=== PATIENT | male | born 1950 | race Native Hawaiian/Other Pacific Islander ===

== ENCOUNTER 2017-10-27 14:43 | Observation (INO) | payer MEDICARE, BC ==
--- NOTE | 2017-10-27 15:34 | C.PDOC ---
History Of Present Illness 66 y/o male presents to the ER complaining of mid sternal chest pain which began 2 days ago. Patient reports that he started feeling the chest pain after he took his medication and was going to bed. Patient reports that the pain radiates to his stomach. Patient states that he had a similar episode 5 days ago which was resolved. He reports that the previous episode was intermittent but the current episode is persistent. Patient states that he went to see Dr. Donahue in Pain Management and Dr. Donahue told him to come to the ER. Time Seen by Provider: 10/27/17 15:32 Chief Complaint (Nursing): Chest Pain History Per: Patient History/Exam Limitations: no limitations Onset/Duration Of Symptoms: Days Current Symptoms Are (Timing): Still Present Severity: Moderate Past Medical History Reviewed: Historical Data, Nursing Documentation, Vital Signs Vital Signs: Last Vital Signs Temp 97.8 F 10/27/17 18:43 Pulse 90 10/27/17 18:43 Resp 20 10/27/17 18:43 BP 150/100 H 10/27/17 18:43 Pulse Ox 97 10/27/17 17:32 - Medical History PMH: Diabetes, HTN, Hypercholesterolemia Surgical History: No Surg Hx Family History: States: No Known Family Hx - Social History Hx Tobacco Use: Yes Hx Alcohol Use: Yes Hx Substance Use: No - Immunization History Hx Tetanus Toxoid Vaccination: No Hx Influenza Vaccination: No Hx Pneumococcal Vaccination: No Review Of Systems Except As Marked, All Systems Reviewed And Found Negative. Constitutional: Negative for: Fever, Chills Cardiovascular: Positive for: Chest Pain (mid sternal chest pain) Respiratory: Negative for: Shortness of Breath Physical Exam - Physical Exam Appears: Well, Non-toxic, No Acute Distress Skin: Normal Color, Warm, Dry Head: Atraumatic, Normacephalic Eye(s): bilateral: Normal Inspection, EOMI Nose: Normal ED Course And Treatment - Laboratory Results Result Diagrams: 10/27/17 15:49 10/27/17 15:49 ECG: Interpreted By Me, Viewed By Me ECG Rhythm: Sinus Rhythm Rate From EC O2 Sat by Pulse Oximetry: 97 (RA) Pulse Ox Interpretation: Normal Disposition - Disposition Disposition: HOSPITALIZED Condition: GOOD - 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 - Scribe Statement The provider has reviewed the documentation as recorded by the Jun Peña All medical record entries made by the Jun were at my direction and personally dictated by me. I have reviewed the chart and agree that the record accurately reflects my personal performance of the history, physical exam, medical decision making, and the department course for this patient. I have also personally directed, reviewed, and agree with the discharge instructions and disposition.
[2017-10-27 15:53] LABS: BASO # 0.1 K/uL (0.0-0.2); BASO % 1.2 % (0.0-2.0); EOS # 0.2 K/uL (0.0-0.7); EOS % 2.5 % (0.0-4.0); HEMATOCRIT 38.6 % (35.0-51.0); LYMPH # 1.2 K/uL (1.0-4.3); LYMPH % 16.5 % (20.0-40.0); MEAN CORPUSCULAR HEMOGLOBIN 31.7 pg (27.0-31.0); MEAN CORPUSCULAR HGB CONC 33.9 g/dL (33.0-37.0); MEAN PLATELET VOLUME 7.4 fL (7.2-11.7); MONO # 0.6 K/uL (0.0-0.8); MONO % 7.9 % (0.0-10.0); NRBC % 0.1 % (0.0-2.0); RED CELL DISTRIBUTION WIDTH 14.7 % (11.5-14.5); WHITE BLOOD COUNT 7.5 K/uL (4.8-10.8)
[2017-10-27 15:56] LABS: MEAN CELL VOLUME 93.6 fL (80.0-94.0)
[2017-10-27 16:02] LABS: INR 0.9
[2017-10-27 16:09] LABS: RBC URINE 1 /hpf (0-3); URINE BILIRUBIN NEGATIVE (NEGATIVE); URINE BLOOD NEGATIVE (NEGATIVE); URINE COLOR Yellow (YELLOW); URINE GLUCOSE (UA) 1+ mg/dL (Normal); URINE KETONE TRACE mg/dL (NEGATIVE); URINE LEUKOCYTE ESTERASE NEG Leu/uL (Negative); URINE PROTEIN 1+ mg/dL (NEGATIVE); URINE UROBILINOGEN NORMAL mg/dL (0.2-1.0); WBC URINE 1 /hpf (0-5)
[2017-10-27 16:12] LABS: ALB/GLOB RATIO 1.3 (1.0-2.1); ALKALINE PHOSPHATASE 90 U/L (38-126); ALT/SGPT 34 U/L (21-72); AST/SGOT 28 U/L (17-59); BILIRUBIN,TOTAL 0.5 mg/dL (0.2-1.3); BLOOD UREA NITROGEN 13 mg/dL (9-20); CALCIUM 8.7 mg/dl (8.6-10.4); CARBON DIOXIDE 26 mmol/L (22-30); CHLORIDE 99 mmol/L (98-107); GFR AFRICAN-AMERICAN > 60; GLUCOSE,RANDOM 116 mg/dL (75-110); SODIUM 133 mmol/L (132-148); TOTAL PROTEIN 7.2 g/dL (6.3-8.3)
--- NOTE | 2017-10-27 16:45 | RAD ---
HISTORY: SOB COMPARISON: Chest x-ray performed 09/15/13 TECHNIQUE: Chest, one view. FINDINGS: Examination limited by habitus. LUNGS: No focal consolidation. Please note that chest x-ray has limited sensitivity for the detection of pulmonary masses. PLEURA: No significant pleural effusion identified. No definite pneumothorax . CARDIOVASCULAR: Heart size appears top normal. Ectatic aorta. Atherosclerotic calcifications of the aorta. OSSEOUS STRUCTURES: Degenerative changes. VISUALIZED UPPER ABDOMEN: Unremarkable. OTHER FINDINGS: None. IMPRESSION: No focal consolidation, significant pleural effusion, or definite pneumothorax identified.
[2017-10-27] MEDS ORDERED: Oxycodone/Acetaminophen 5/325 mg Tab PO PRN (20:26)
--- NOTE | 2017-10-27 20:28 | CP.PCM.HP ---
History of Present Illness - History of Present Illness History of Present Illness: Patient with PMH NIDDM Hypertension Cholesterol Back Injury with Discc Disease /Neuropathy Chronic pain came to ER due to persistent chestpain for 2 days. Patient noted an new episode of stabbing pain like and palpitations on anterior chest , disappeared with no medications , patient went to his usual daily PT for his chronic back pain - and again- he had another episode of stabbing pain , he was advised to go to ER -in ER- patient reports palpitations during chest pain, denies SOB, nausea vomiting SOB fever no URI no GI complaints Patient was admitted for further evaluation and management PMH as above NKDA smoker non ETOH no surgery Present on Admission - Present on Admission Any Indicators Present on Admission: No History of DVT/PE: No History of Uncontrolled Diabetes: No Urinary Catheter: No Decubitus Ulcer Present: No Review of Systems - Constitutional Constitutional: absent: Chills, Fever, Lethargy, Night Sweats, Weakness - EENT Eyes: absent: Other Visual Disturbances Ears: absent: Decreased Hearing, Disequilibrium Nose/Mouth/Throat: absent: Nasal Congestion, Nasal Discharge, Sinus Pain - Cardiovascular Cardiovascular: Chest Pain, Chest Pain at Rest, Rapid Heart Rate. absent: Dyspnea, Dyspnea on Exertion, Orthopnea, Slow Heart Rate, Syncope - Respiratory Respiratory: absent: Cough, Dyspnea, Dyspnea on Exertion, Wheezing, Pain on Inspiration - Gastrointestinal Gastrointestinal: absent: Abdominal Pain, Diarrhea, Vomiting - Genitourinary Genitourinary: absent: Difficulty Urinating - Musculoskeletal Musculoskeletal: Other (chronic back pain). absent: Abnormal Gait, Deformity, Joint Swelling - Integumentary Integumentary: absent: Bleeding Lesions, Rash, Skin Ulcer, Sores, Jaundice - Neurological Neurological: absent: Behavioral Changes, Convulsions - Psychiatric Psychiatric: absent: Auditory Hallucinations, Confusion, Depression - Endocrine Endocrine: absent: Fatigue, Polydipsia, Polyphagia, Polyuria - Hematologic/Lymphatic Hematologic: absent: Easy Bleeding, Easy Bruising Past Patient History - Past Medical History & Family History Past Medical History?: Yes - Past Social History Smoking Status: Light Smoker < 10 Cigarettes Daily - CARDIAC Hx Cardiac Disorders: Yes Hx Hypercholesterolemia: Yes Hx Hypertension: Yes - PULMONARY Hx Respiratory Disorders: No - NEUROLOGICAL Hx Neurological Disorder: Yes Hx Dizziness: Yes - HEENT Hx HEENT Problems: No - RENAL Hx Chronic Kidney Disease: No - ENDOCRINE/METABOLIC Hx Endocrine Disorders: Yes Hx Diabetes Mellitus Type 2: Yes - HEMATOLOGICAL/ONCOLOGICAL Hx Blood Disorders: No - INTEGUMENTARY Hx Dermatological Problems: No - MUSCULOSKELETAL/RHEUMATOLOGICAL Hx Falls: Yes - GASTROINTESTINAL Hx Gastrointestinal Disorders: Yes Hx Constipation: Yes - GENITOURINARY/GYNECOLOGICAL Hx Genitourinary Disorders: Yes - PSYCHIATRIC Hx Substance Use: No - SURGICAL HISTORY Hx Surgeries: No - ANESTHESIA Hx Anesthesia: No Hx Anesthesia Reactions: No Meds Allergies/Adverse Reactions: Allergies Allergy/AdvReac Type Severity Reaction Status Date / Time No Known Allergies Allergy Verified 10/27/17 14:50 Physical Exam - Constitutional Appears: Well, Non-toxic, No Acute Distress - Head Exam Head Exam: ATRAUMATIC, NORMOCEPHALIC - Eye Exam Eye Exam: absent: Nystagmus - ENT Exam ENT Exam: Mucous Membranes Moist - Neck Exam Neck exam: Negative for: Tenderness - Respiratory Exam Respiratory Exam: Clear to Auscultation Bilateral, NORMAL BREATHING PATTERN - Cardiovascular Exam Cardiovascular Exam: REGULAR RHYTHM - GI/Abdominal Exam GI & Abdominal Exam: Normal Bowel Sounds, Soft. absent: Tenderness - Extremities Exam Extremities exam: Positive for: normal inspection. Negative for: pedal edema - Neurological Exam Neurological exam: Alert, Normal Gait, Oriented x3 Results - Vital Signs Recent Vital Signs: Last Vital Signs Temp 97.8 F 10/27/17 18:43 Pulse 90 10/27/17 19:29 Resp 20 10/27/17 18:43 BP 150/100 H 10/27/17 18:43 Pulse Ox 97 10/27/17 19:04 - Labs Result Diagrams: 10/27/17 15:49 10/27/17 15:49 Labs: Laboratory Results - last 24 hr 10/27/17 10/27/17 10/27/17 15:49 15:49 15:49 WBC 7.5 RBC 4.12 L Hgb 13.1 Hct 38.6 MCV 93.6 D MCH 31.7 H MCHC 33.9 RDW 14.7 H Plt Count 246 MPV 7.4 Neut % (Auto) 71.9 Lymph % (Auto) 16.5 L [place] % (Auto) 7.9 Eos % (Auto) 2.5 Baso % (Auto) 1.2 Neut # 5.4 Lymph # 1.2 Garza # 0.6 Eos # 0.2 Baso # 0.1 PT 10.1 INR 0.9 APTT 35 H Sodium 133 Potassium 4.0 Chloride 99 Carbon Dioxide 26 Anion Gap 12 BUN 13 Creatinine 0.9 Est GFR ( Amer) > 60 Est GFR (Non-Af Amer) > 60 Random Glucose 116 H Calcium 8.7 Total Bilirubin 0.5 AST 28 ALT 34 Alkaline Phosphatase 90 Total Creatine Kinase 102 CK-MB (Mass) 0.82 Troponin I < 0.0120 Total Protein 7.2 Albumin 4.1 Globulin 3.1 Albumin/Globulin Ratio 1.3 Lipase 77 Urine Color Urine Clarity Urine pH Ur Specific [place] Urine Protein Urine Glucose (UA) Urine Ketones Urine Blood Urine Nitrate Urine Bilirubin Urine Urobilinogen Ur Leukocyte Esterase Urine WBC (Auto) Urine RBC (Auto) 10/27/17 15:55 WBC RBC Hgb Hct MCV MCH MCHC RDW Plt Count MPV Neut % (Auto) Lymph % (Auto) Gar[place] % (Auto) Eos % (Auto) Baso % (Auto) Neut # Lymph # [place] # Eos # Baso # PT INR APTT Sodium Potassium Chloride Carbon Dioxide Anion Gap BUN Creatinine Est GFR ( Amer) Est GFR (Non-Af Amer) Random Glucose Calcium Total Bilirubin AST ALT Alkaline Phosphatase Total Creatine Kinase CK-MB (Mass) Troponin I Total Protein Albumin Globulin Albumin/Globulin Ratio Lipase Urine Color Yellow Urine Clarity Clear Urine pH 6.0 Ur Specific [place] 1.018 Urine Protein 1+ H Urine Glucose (UA) 1+ H Urine Ketones Trace Urine Blood Negative Urine Nitrate Negative Urine Bilirubin Negative Urine Urobilinogen Normal Ur Leukocyte Esterase Neg Urine WBC (Auto) 1 Urine RBC (Auto) 1 Assessment & Plan - Assessment and Plan (Free Text) Plan: Patient with NIDDM2 Hypertension Cholesterol, smoker admitted due to new onset anterior chest pain- with risk factors- patient admitted for further cardiac evaluation LIZ,2 d ECHo- cardio consult DVT prophylaxis, GI prophylaxis NIDDM- continue current meds heart health 1800 ADA diet , accucheck Hypertension- continue medications adjust accordingly continue cholesterol medications Chronic pain syndrome from back injury - PT Rehab pain cpntrol stable- further evaluation
[2017-10-27] MEDS: Enoxaparin 30 mg Syringe SC SCH (21:42)
[2017-10-28] MEDS ORDERED: (Novolog) Insulin Aspart, Recombinant 100 u/ml 10 ml vial SC SCH (07:30)
--- NOTE | 2017-10-28 08:20 | CP.PCM.PN ---
Subjective - Date & Time of Evaluation Date of Evaluation: 10/28/17 Time of Evaluation: 15:00 - Subjective Subjective: Noted BP on the high side , medication reviewed and reconciled patient denies chest pain no other complaints patient went for nuclear test- with negative result echo unremarkable LIZ negative patient wishes to go home discussed Objective - Vital Signs/Intake and Output Vital Signs (last 24 hours): Temp Pulse Resp BP Pulse Ox 98 F 76 20 162/89 H 97 10/28/17 04:30 10/28/17 04:30 10/28/17 04:30 10/28/17 04:30 10/27/17 23:10 Intake and Output: 10/28/17 10/28/17 06:59 18:59 Intake Total 210 Balance 210 - Medications Medications: Current Medications Enoxaparin Sodium (Lovenox) 30 mg SC Q12 [facility] Last Admin: 10/27/17 21:42 Dose: 30 mg Gabapentin (Neurontin) 100 mg PO TID [facility] Insulin Aspart (Novolog) 1 unit SC BIDAC [facility] PRN Reason: Protocol Losartan Potassium (Cozaar) 100 mg PO DAILY [facility] Metformin HCl (Glucophage) 1,000 mg PO BIDCC [facility] Last Admin: 10/27/17 21:41 Dose: 1,000 mg Oxycodone/Acetaminophen (Percocet 5/325 Mg Tab) 1 tab PO Q6H PRN PRN Reason: Pain, moderate (4-7) Stop: 10/30/17 20:27 Last Admin: 10/27/17 21:48 Dose: 1 tab Pantoprazole Sodium (Protonix Ec Tab) 40 mg PO DAILY [facility] Rosuvastatin Calcium (Crestor) 10 mg PO HS [facility] Last Admin: 10/27/17 21:42 Dose: 10 mg - Labs Labs: 10/27/17 15:49 10/27/17 15:49 PT 10.1 SECONDS (9.7-12.2) 10/27/17 15:49 INR 0.9 10/27/17 15:49 APTT 35 SECONDS (21-34) H 10/27/17 15:49 - Constitutional Appears: Non-toxic, No Acute Distress - Head Exam Head Exam: ATRAUMATIC, NORMAL INSPECTION - Eye Exam Eye Exam: Normal appearance - ENT Exam ENT Exam: Mucous Membranes Moist - Respiratory Exam Respiratory Exam: Clear to Ausculation Bilateral, NORMAL BREATHING PATTERN - Cardiovascular Exam Cardiovascular Exam: REGULAR RHYTHM - Extremities Exam Extremities Exam: absent: Pedal Edema, Tenderness - Neurological Exam Neurological Exam: Alert, Awake, Normal Gait, Oriented x3 - Psychiatric Exam Psychiatric exam: Normal Affect, Normal Mood Assessment and Plan - Assessment and Plan (Free Text) Assessment: Patient with multiple riskfators came with chest pain- resolved, cardiac wor up negative- patient can go home NIDDM- continue same medications Hypertension- can resume home meds Chronic back pain- has regular follow up with PT rehab patient can go home- discussed to follow up in o=ne week
[2017-10-28] MEDS ORDERED: Aminophylline 25 mg/ml Inj ONE (08:27)
--- NOTE | 2017-10-28 08:46 | CP.PCM.CON ---
History of Present Illness - History of Present Illness History of Present Illness: 66M admitted with chest pain radiating to left arm Not related to exertion Denies dyspnea Review of Systems - Constitutional Constitutional: absent: Chills, Fever, Lethargy, Night Sweats, Weakness - EENT Eyes: absent: Other Visual Disturbances Ears: absent: Decreased Hearing, Disequilibrium Nose/Mouth/Throat: absent: Nasal Congestion, Nasal Discharge, Sinus Pain - Cardiovascular Cardiovascular: Chest Pain, Chest Pain at Rest, Rapid Heart Rate. absent: Dyspnea, Dyspnea on Exertion, Orthopnea, Slow Heart Rate, Syncope - Respiratory Respiratory: absent: Cough, Dyspnea, Dyspnea on Exertion, Wheezing, Pain on Inspiration - Gastrointestinal Gastrointestinal: absent: Abdominal Pain, Diarrhea, Vomiting - Genitourinary Genitourinary: absent: Difficulty Urinating - Musculoskeletal Musculoskeletal: Other (chronic back pain). absent: Abnormal Gait, Deformity, Joint Swelling - Integumentary Integumentary: absent: Bleeding Lesions, Rash, Skin Ulcer, Sores, Jaundice - Neurological Neurological: absent: Behavioral Changes, Convulsions - Psychiatric Psychiatric: absent: Auditory Hallucinations, Confusion, Depression - Endocrine Endocrine: absent: Fatigue, Polydipsia, Polyphagia, Polyuria - Hematologic/Lymphatic Hematologic: absent: Easy Bleeding, Easy Bruising Physical Exam - Constitutional Appears: Well, Non-toxic, No Acute Distress - Head Exam Head Exam: ATRAUMATIC, NORMOCEPHALIC - Eye Exam Eye Exam: absent: Nystagmus - ENT Exam ENT Exam: Mucous Membranes Moist - Neck Exam Neck exam: Negative for: Tenderness - Respiratory Exam Respiratory Exam: Clear to Auscultation Bilateral, NORMAL BREATHING PATTERN - Cardiovascular Exam Cardiovascular Exam: REGULAR RHYTHM - GI/Abdominal Exam GI & Abdominal Exam: Normal Bowel Sounds, Soft. absent: Tenderness - Extremities Exam Extremities exam: Positive for: normal inspection. Negative for: pedal edema - Neurological Exam Neurological exam: Alert, Normal Gait, Oriented x3 Past Patient History - Past Medical History & Family History Past Medical History?: Yes - Past Social History Smoking Status: Light Smoker < 10 Cigarettes Daily - CARDIAC Hx Cardiac Disorders: Yes Hx Hypercholesterolemia: Yes Hx Hypertension: Yes - PULMONARY Hx Respiratory Disorders: No - NEUROLOGICAL Hx Neurological Disorder: Yes Hx Dizziness: Yes - HEENT Hx HEENT Problems: No - RENAL Hx Chronic Kidney Disease: No - ENDOCRINE/METABOLIC Hx Endocrine Disorders: Yes Hx Diabetes Mellitus Type 2: Yes - HEMATOLOGICAL/ONCOLOGICAL Hx Blood Disorders: No - INTEGUMENTARY Hx Dermatological Problems: No - MUSCULOSKELETAL/RHEUMATOLOGICAL Hx Falls: Yes - GASTROINTESTINAL Hx Gastrointestinal Disorders: Yes Hx Constipation: Yes - GENITOURINARY/GYNECOLOGICAL Hx Genitourinary Disorders: Yes - PSYCHIATRIC Hx Substance Use: No - SURGICAL HISTORY Hx Surgeries: No - ANESTHESIA Hx Anesthesia: No Hx Anesthesia Reactions: No Meds Allergies/Adverse Reactions: Allergies Allergy/AdvReac Type Severity Reaction Status Date / Time No Known Allergies Allergy Verified 10/27/17 14:50 - Medications Medications: Current Medications Amlodipine Besylate (Norvasc) 5 mg PO DAILY [facility] Docusate Sodium (Colace) 100 mg PO TID [facility] Enoxaparin Sodium (Lovenox) 30 mg SC Q12 [facility] Last Admin: 10/27/17 21:42 Dose: 30 mg Gabapentin (Neurontin) 100 mg PO TID [facility] Insulin Aspart (Novolog) 1 unit SC BIDAC [facility] PRN Reason: Protocol Losartan Potassium (Cozaar) 100 mg PO DAILY [facility] Metformin HCl (Glucophage) 1,000 mg PO BIDCC [facility] Last Admin: 10/27/17 21:41 Dose: 1,000 mg Oxycodone/Acetaminophen (Percocet 5/325 Mg Tab) 1 tab PO Q6H PRN PRN Reason: Pain, moderate (4-7) Stop: 10/30/17 20:27 Last Admin: 10/27/17 21:48 Dose: 1 tab Pantoprazole Sodium (Protonix Ec Tab) 40 mg PO DAILY [facility] Rosuvastatin Calcium (Crestor) 10 mg PO HS [facility] Last Admin: 10/27/17 21:42 Dose: 10 mg Results - Vital Signs Recent Vital Signs: Last Vital Signs Temp 98 F 10/28/17 04:30 Pulse 76 10/28/17 04:30 Resp 20 10/28/17 04:30 BP 162/89 H 10/28/17 04:30 Pulse Ox 97 10/27/17 23:10 - Labs Result Diagrams: 10/27/17 15:49 10/27/17 15:49 Labs: Laboratory Results - last 24 hr 10/27/17 10/27/17 10/27/17 15:49 15:49 15:49 WBC 7.5 RBC 4.12 L Hgb 13.1 Hct 38.6 MCV 93.6 D MCH 31.7 H MCHC 33.9 RDW 14.7 H Plt Count 246 MPV 7.4 Neut % (Auto) 71.9 Lymph % (Auto) 16.5 L [place] % (Auto) 7.9 Eos % (Auto) 2.5 Baso % (Auto) 1.2 Neut # 5.4 Lymph # 1.2 [place] # 0.6 Eos # 0.2 Baso # 0.1 PT 10.1 INR 0.9 APTT 35 H Sodium 133 Potassium 4.0 Chloride 99 Carbon Dioxide 26 Anion Gap 12 BUN 13 Creatinine 0.9 Est GFR ( Amer) > 60 Est GFR (Non-Af Amer) > 60 POC Glucose (mg/dL) Random Glucose 116 H Calcium 8.7 Total Bilirubin 0.5 AST 28 ALT 34 Alkaline Phosphatase 90 Total Creatine Kinase 102 CK-MB (Mass) 0.82 Troponin I < 0.0120 Total Protein 7.2 Albumin 4.1 Globulin 3.1 Albumin/Globulin Ratio 1.3 Lipase 77 Urine Color Urine Clarity Urine pH Ur Specific [place] Urine Protein Urine Glucose (UA) Urine Ketones Urine Blood Urine Nitrate Urine Bilirubin Urine Urobilinogen Ur Leukocyte Esterase Urine WBC (Auto) Urine RBC (Auto) 10/27/17 10/27/17 10/27/17 15:55 21:06 22:04 WBC RBC Hgb Hct MCV MCH MCHC RDW Plt Count MPV Neut % (Auto) Lymph % (Auto) [place] % (Auto) Eos % (Auto) Baso % (Auto) Neut # Lymph # [place] # Eos # Baso # PT INR APTT Sodium Potassium Chloride Carbon Dioxide Anion Gap BUN Creatinine Est GFR ( Amer) Est GFR (Non-Af Amer) POC Glucose (mg/dL) 136 H Random Glucose Calcium Total Bilirubin AST ALT Alkaline Phosphatase Total Creatine Kinase 94 CK-MB (Mass) 0.63 Troponin I < 0.0120 Total Protein Albumin Globulin Albumin/Globulin Ratio Lipase Urine Color Yellow Urine Clarity Clear Urine pH 6.0 Ur Specific [place] 1.018 Urine Protein 1+ H Urine Glucose (UA) 1+ H Urine Ketones Trace Urine Blood Negative Urine Nitrate Negative Urine Bilirubin Negative Urine Urobilinogen Normal Ur Leukocyte Esterase Neg Urine WBC (Auto) 1 Urine RBC (Auto) 1 10/28/17 10/28/17 04:32 06:13 WBC RBC Hgb Hct MCV MCH MCHC RDW Plt Count MPV Neut % (Auto) Lymph % (Auto) [place] % (Auto) Eos % (Auto) Baso % (Auto) Neut # Lymph # [place] # Eos # Baso # PT INR APTT Sodium Potassium Chloride Carbon Dioxide Anion Gap BUN Creatinine Est GFR ( Amer) Est GFR (Non-Af Amer) POC Glucose (mg/dL) 96 Random Glucose Calcium Total Bilirubin AST ALT Alkaline Phosphatase Total Creatine Kinase 97 CK-MB (Mass) 0.65 Troponin I < 0.0120 Total Protein Albumin Globulin Albumin/Globulin Ratio Lipase Urine Color Urine Clarity Urine pH Ur Specific [place] Urine Protein Urine Glucose (UA) Urine Ketones Urine Blood Urine Nitrate Urine Bilirubin Urine Urobilinogen Ur Leukocyte Esterase Urine WBC (Auto) Urine RBC (Auto) Assessment & Plan - Assessment and Plan (Free Text) Assessment: 66 M HTN DM 2 Hyperlipidemia and Chest pain Due to multiple risk factors will perform stress test in am
[2017-10-28] MEDS ORDERED: Pantoprazole 40 mg EC Tab PO SCH (10:00)
[2017-10-28] MEDS: Enoxaparin 30 mg Syringe SC SCH (10:23)
--- NOTE | 2017-10-28 14:00 | CARD ---
APPROVED REPORT EXAM: Two-dimensional and M-mode echocardiogram with Doppler and color Doppler. Other Information Quality : GoodRhythm : INDICATION Chest Pain Palpitations RISK FACTORS Hypertension Diabetes 2D DIMENSIONS IVSd1.0 (0.7-1.1cm)LVDd5.0 (3.9-5.9cm) PWd1.1 (0.7-1.1cm)LVDs3.0 (2.5-4.0cm) FS (%) 40.3 %LVEF (%)70.8 (>50%) M-Mode DIMENSIONS Left Atrium (MM)2.99 (2.5-4.0cm)Aortic Root3.72 (2.2-3.7cm) Aortic Cusp Exc.2.33 (1.5-2.0cm) Mitral Valve MV E Spociaun04.6cm/sMV A Drhzngap06.8cm/sE/A ratio0.6 TDI E/Lateral E'0.0E/Medial E'0.0 Tricuspid Valve TR Peak [id number]/sRAP [id number] Peak Gr.33mmHg [id number] LEFT VENTRICLE The left ventricle is normal size. There is normal left ventricular wall thickness. The left ventricular systolic function is normal. There is normal LV segmental wall motion. Transmitral Doppler flow pattern is Grade I-abnormal relaxation pattern. RIGHT VENTRICLE The right ventricle is normal size. The right ventricular systolic function is normal. ATRIA The left atrium size is normal. The right atrium size is normal. AORTIC VALVE The aortic valve is normal in structure. No aortic regurgitation is present. MITRAL VALVE The mitral valve is normal in structure. There is no mitral valve regurgitation noted. TRICUSPID VALVE The tricuspid valve is normal in structure. There is mild tricuspid regurgitation. Right ventricular systolic pressure is estimated at - 38 mmHg. There is mild pulmonary hypertension. PULMONIC VALVE The pulmonic valve is not well visualized. GREAT VESSELS The aortic root is normal in size. The IVC is normal in size and collapses >50% with inspiration. PERICARDIAL EFFUSION There is no pericardial effusion. <Conclusion> The left ventricular systolic function is normal. There is normal LV segmental wall motion. Transmitral Doppler flow pattern is Grade I-abnormal relaxation pattern. The right ventricular systolic function is normal. There is mild tricuspid regurgitation. Right ventricular systolic pressure is estimated at - 38 mmHg suggestive of mild pulmonary hypertension. There is no pericardial effusion.
--- NOTE | 2017-10-28 14:30 | CARD ---
APPROVED REPORT Protocol: PHARMACOLOGICAL STRESS Test Type: LEXISCAN Test Indications: CHEST PAIN Medications: LIST SCAN Medical History: CHEST PAIN Target HR: 152 bpm Resting ECG: normal Resting Heart Rate: 85 bpm Resting Blood Pressure: 160/80mmHg submaximum (85%): 129 bpm TEST SUMMARY [id number]/80.0. INFUSIONDOSE 100:[id number]/80.1. [id number]/78.1. PROCEDURE Pharmacologic stress testing was performed using 0.4mg per 5ml of regadenoson given intravenously over 7-10 seconds. POST EXERCISE Reason for Termination: Protocol Completed Target HR: No Max HR: 82 bpm 65% of Maximum Predicted HR: 152 bpm Exercise duration: 00:30 min:sec, 0 Stage Exercise capacity: 1.0METs Max Blood Pressure: 180/80mmHg Blood Pressure response to exercise: normal resting BP - appropriate response Heart Rate response to exercise: appropriate Chest Pain: No, none Angina index: 0 Arrhythmia: No, none ST Change: No, none Deviation: 0 mm INTERPRETATION Stress EKG Conclusion: Nuclear report to follow EXAM: Myocardial Perfusion REST/STRESS Imaging Protocol The imaging protocol used to acquire images was Rest Tc-99m/stress Tc-99m 1 day Rest Spect myocardial perfusion imaging was performed in supine position 45 minutes following the injection of 12.6 mCi of Tc-99 Myoview. Gated Stress Spect was performed 45 minutes after intravenous 32.5 mCi Tc-99 Myoview injection. The images were gated to evaluate regional wall motion and calculate ventricular ejection fraction.Images were reconstructed using backfilter projection method in short horizontal and verticle long axis. Spect slices were generated. RESTING DATA EDV96.83omCO9.50L/min ESV31.00mlMyocardial Kshy646.00g Av. Heart Rate84.00bpm EF68.00% STRESS DATA EDV94.21ewFY2.10L/min ESV34.00mlMyocardial Qdsd592.00g EF64.00% Regional WT score at stress:1.00 Regional WM score at stress:0.00 Summed WT score at stress:6.00 Av. Heart Rate85.00bpmSummed WM score at stress:4.00 LV Perf. Quant 17 Seg. SSS4.00 17 Seg. SRS3.00 17 Seg. SDS1.00 Stress Defect Extent (% LAD)0.00Rest Defect Extent (% LAD)0.00Rev. Defect Extent (% LAD)0.00 Stress Defect Extent (% LCX)30.00Rest Defect Extent (% LCX)25.00Rev. Defect Extent (% LCX)0.00 Stress Defect Extent (% RCA)0.00Rest Defect Extent (% RCA)0.00Rev. Defect Extent (% RCA)0.00 Stress Defect Extent (% MARÍA)8.00Rest Defect Extent (% MARÍA)5.70Rev. Defect Extent (% MARÍA)0.20 Other Information Quality:Good IMPRESSION Normal Myocardial Perfusion exercise stress study Left Ventricle LV Function:Left ventricle systolic function is normal. The Ejection Fraction is >55%. Metabolism/Perfusion There are no perfusion/metabolism defects. Conclusion 1. Normal Lexiscan nuclear stress test. Normal EF
--- NOTE | 2017-10-28 14:56 | CP.PCM.PN ---
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 Patient seen today denies any chest pain, sob, palpitations s/p stress test - negative Objective - Vital Signs/Intake and Output Vital Signs (last 24 hours): Temp Pulse Resp BP Pulse Ox 98 F 88 20 162/89 H 97 10/28/17 04:30 10/28/17 08:00 10/28/17 04:30 10/28/17 04:30 10/27/17 23:10 Intake and Output: 10/28/17 10/28/17 06:59 18:59 Intake Total 210 240 Balance 210 240 - Medications Medications: Current Medications Amlodipine Besylate (Norvasc) 5 mg PO DAILY [facility] Last Admin: 10/28/17 10:23 Dose: 5 mg Docusate Sodium (Colace) 100 mg PO TID [facility] Last Admin: 10/28/17 13:52 Dose: 100 mg Enoxaparin Sodium (Lovenox) 30 mg SC Q12 [facility] Last Admin: 10/28/17 10:23 Dose: 30 mg Gabapentin (Neurontin) 100 mg PO TID [facility] Last Admin: 10/28/17 13:52 Dose: 100 mg Insulin Aspart (Novolog) 1 unit SC BIDAC [facility] PRN Reason: Protocol Last Admin: 10/28/17 08:30 Dose: Not Given Losartan Potassium (Cozaar) 100 mg PO DAILY [facility] Last Admin: 10/28/17 10:25 Dose: 100 mg Metformin HCl (Glucophage) 1,000 mg PO BIDCC [facility] Last Admin: 10/28/17 08:00 Dose: Not Given Oxycodone/Acetaminophen (Percocet 5/325 Mg Tab) 1 tab PO Q6H PRN PRN Reason: Pain, moderate (4-7) Stop: 10/30/17 20:27 Last Admin: 10/27/17 21:48 Dose: 1 tab Pantoprazole Sodium (Protonix Ec Tab) 40 mg PO DAILY [facility] Last Admin: 10/28/17 10:23 Dose: 40 mg Rosuvastatin Calcium (Crestor) 10 mg PO HS [facility] Last Admin: 10/27/17 21:42 Dose: 10 mg - Labs Labs: 10/27/17 15:49 10/27/17 15:49 PT 10.1 SECONDS (9.7-12.2) 10/27/17 15:49 INR 0.9 10/27/17 15:49 APTT 35 SECONDS (21-34) H 10/27/17 15:49 Assessment and Plan - Assessment and Plan (Free Text) Assessment: A/P 66 yr old male admitted with mid sternal chest pain troponin x 3 negative s/p stress test- negative D/W Dr. calle. cleared fro discharge home today from cardiology standpoint and f/ u with his office in 1 month D/W Dr. Alivia gupta for discharge home today and f/u with Dr. Sin office in 1 week Discharge plan discussed with patient , who understands and agrees with plan Patient instructed to returns to ED if symptoms returns or any other concerning symptoms
--- NOTE | 2017-10-28 15:05 | CP.PCM.DIS ---
Provider - Provider Date of Admission: 10/27/17 17:15 Attending physician: Taylor Bunch MD Time Spent in preparation of Discharge (in minutes): 30 Hospital Course - Lab Results Lab Results: Most Recent Lab Values WBC 7.5 K/uL (4.8-10.8) 10/27/17 15:49 RBC 4.12 Mil/uL (4.40-5.90) L 10/27/17 15:49 Hgb 13.1 g/dL (12.0-18.0) 10/27/17 15:49 Hct 38.6 % (35.0-51.0) 10/27/17 15:49 MCV 93.6 fL (80.0-94.0) D 10/27/17 15:49 MCH 31.7 pg (27.0-31.0) H 10/27/17 15:49 MCHC 33.9 g/dL (33.0-37.0) 10/27/17 15:49 RDW 14.7 % (11.5-14.5) H 10/27/17 15:49 Plt Count 246 K/uL (130-400) 10/27/17 15:49 MPV 7.4 fL (7.2-11.7) 10/27/17 15:49 Neut % (Auto) 71.9 % (50.0-75.0) 10/27/17 15:49 Lymph % (Auto) 16.5 % (20.0-40.0) L 10/27/17 15:49 [place] % (Auto) 7.9 % (0.0-10.0) 10/27/17 15:49 Eos % (Auto) 2.5 % (0.0-4.0) 10/27/17 15:49 Baso % (Auto) 1.2 % (0.0-2.0) 10/27/17 15:49 Neut # 5.4 K/uL (1.8-7.0) 10/27/17 15:49 Lymph # 1.2 K/uL (1.0-4.3) 10/27/17 15:49 [place] # 0.6 K/uL (0.0-0.8) 10/27/17 15:49 Eos # 0.2 K/uL (0.0-0.7) 10/27/17 15:49 Baso # 0.1 K/uL (0.0-0.2) 10/27/17 15:49 PT 10.1 SECONDS (9.7-12.2) 10/27/17 15:49 INR 0.9 10/27/17 15:49 APTT 35 SECONDS (21-34) H 10/27/17 15:49 Sodium 133 mmol/L (132-148) 10/27/17 15:49 Potassium 4.0 mmol/L (3.6-5.2) 10/27/17 15:49 Chloride 99 mmol/L (98-107) 10/27/17 15:49 Carbon Dioxide 26 mmol/L (22-30) 10/27/17 15:49 Anion Gap 12 (10-20) 10/27/17 15:49 BUN 13 mg/dL (9-20) 10/27/17 15:49 Creatinine 0.9 mg/dL (0.8-1.5) 10/27/17 15:49 Est GFR ( Amer) > 60 10/27/17 15:49 Est GFR (Non-Af Amer) > 60 10/27/17 15:49 POC Glucose (mg/dL) 182 mg/dL (65-110) H 10/28/17 11:51 Random Glucose 116 mg/dL (75-110) H 10/27/17 15:49 Calcium 8.7 mg/dl (8.6-10.4) 10/27/17 15:49 Total Bilirubin 0.5 mg/dL (0.2-1.3) 10/27/17 15:49 AST 28 U/L (17-59) 10/27/17 15:49 ALT 34 U/L (21-72) 10/27/17 15:49 Alkaline Phosphatase 90 U/L (38-126) 10/27/17 15:49 Total Creatine Kinase 97 U/L (55-170) 10/28/17 04:32 CK-MB (Mass) 0.65 ng/mL (0.0-3.38) 10/28/17 04:32 Troponin I < 0.0120 ng/mL (0.00-0.120) 10/28/17 04:32 Total Protein 7.2 g/dL (6.3-8.3) 10/27/17 15:49 Albumin 4.1 g/dL (3.5-5.0) 10/27/17 15:49 Globulin 3.1 gm/dL (2.2-3.9) 10/27/17 15:49 Albumin/Globulin Ratio 1.3 (1.0-2.1) 10/27/17 15:49 Lipase 77 U/L (23-300) 10/27/17 15:49 Urine Color Yellow (YELLOW) 10/27/17 15:55 Urine Clarity Clear (Clear) 10/27/17 15:55 Urine pH 6.0 (5.0-8.0) 10/27/17 15:55 Ur Specific [place] 1.018 (1.003-1.030) 10/27/17 15:55 Urine Protein 1+ mg/dL (NEGATIVE) H 10/27/17 15:55 Urine Glucose (UA) 1+ mg/dL (Normal) H 10/27/17 15:55 Urine Ketones Trace mg/dL (NEGATIVE) 10/27/17 15:55 Urine Blood Negative (NEGATIVE) 10/27/17 15:55 Urine Nitrate Negative (NEGATIVE) 10/27/17 15:55 Urine Bilirubin Negative (NEGATIVE) 10/27/17 15:55 Urine Urobilinogen Normal mg/dL (0.2-1.0) 10/27/17 15:55 Ur Leukocyte Esterase Neg [place]/uL (Negative) 10/27/17 15:55 Urine WBC (Auto) 1 /hpf (0-5) 10/27/17 15:55 Urine RBC (Auto) 1 /hpf (0-3) 10/27/17 15:55 - Hospital Course Hospital Course: patient admitted for new onset stabbing anterior chest pain that did not get resolved- cardiac work up were negative patient to continue same home medications, and chronic back pain therapy to follow up in clinic in one week Discharge Exam - Head Exam Head Exam: ATRAUMATIC, NORMAL INSPECTION - Eye Exam Eye Exam: Normal appearance - ENT Exam ENT Exam: Mucous Membranes Moist - Respiratory Exam Respiratory Exam: Clear to PA & Lateral, NORMAL BREATHING PATTERN - Cardiovascular Exam Cardiovascular Exam: REGULAR RHYTHM - GI/Abdominal Exam GI & Abdominal Exam: Normal Bowel Sounds, Soft. absent: Tenderness - Neurological Exam Neurological exam: Alert, Normal Gait, Oriented x3 - Psychiatric Exam Psychiatric exam: Normal Affect, Normal Mood - Skin Skin Exam: Intact, Normal Color Discharge Plan - Follow Up Plan Condition: GOOD Disposition: HOME/ ROUTINE Additional Instructions: Please f/u with Dr. Bunch office in 1 week f/u with Dr. Munoz office in 1 month- call and make appointment resume all home medications
[2017-10-28 15:34] VITALS: BP 166/90; PULSE 87; RESP 18; TEMP 98.1; O2SAT 98
[2017-10-29] MEDS ORDERED: Influenza Vaccine 60 mcg/0.5 mL SYR (4YR UP) IM ONE (10:00)
--- NOTE | 2017-10-29 12:56 | CARD ---
APPROVED REPORT EKG Measurement Heart [id number] <Conclusion> Normal sinus rhythm Normal ECG
== END 2017-10-28 16:18 | disposition home or self-care (01) ==
LOC: C.ER 14:43 → C.9E 17:15 → C.6T 17:38
PROVIDERS: ADMIT Internal Medicine; ATTEND Internal Medicine
DX: R07.89 Other chest pain (principal); E78.5 Hyperlipidemia, unspecified; F17.200 Nicotine dependence, unspecified, uncomplicated; G89.29 Other chronic pain; I10 Essential (primary) hypertension
CPT/HCPCS: 36415; 78452; 80053; 81001; 82550; 82553; 82948; 83690; 84484; 85025; 85610; 85730; 93005; 93017; 93306; 99285; A9502; G0378; J1650; J2785

== ENCOUNTER 2018-07-29 06:20 | Day surgery (SDC) | payer MEDICARE, BC ==
[2018-07-22 12:38] VITALS: BMI 32.5
[2018-07-29] MEDS ORDERED: Gentamicin 160 MG in Sodium Chloride 0.9% 100 ML IVPB ONE (07:30)
[2018-07-29] MEDS ORDERED: cefTRIAXone 1 gm 1 GM/100 ML BAG IVPB ONE (07:51)
[2018-07-29] MEDS ORDERED: Lidocaine 2% Jelly (Uro-Jet) ONE (07:51)
[2018-07-29] MEDS ORDERED: Propofol 10 mg/ml Inj (20 ML) ONE (08:03)
[2018-07-29] MEDS ORDERED: Midazolam 2 MG/2 ML VIAL ONE (08:03)
[2018-07-29 12:14] VITALS: RESP 18
[2018-07-29 13:08] VITALS: BP 142/75; PULSE 83; TEMP 97.7; O2SAT 99
--- NOTE | 2018-07-30 04:10 | OP ---
PROCEDURE DATE: 07/29/2018 PREOPERATIVE DIAGNOSIS: Elevated PSA 3.25. POSTOPERATIVE DIAGNOSIS: Elevated PSA 3.25. PROCEDURE: Transrectal ultrasound. DIAGNOSTIC: Transrectal ultrasound guidance and prostatic biopsy SURGEON: Waqar Gauthier MD DESCRIPTION OF THE PROCEDURE: The patient was brought to the operating room, and prior to that, he acknowledged, he has not taken any aspirin or Motrin for over a week. He was also told that in the unlikely events, he gets fever, chills, or heavy bleeding, he is to call the office immediately and/or go to the emergency room. In the OR, he was prepped with 160 mg gentamicin and 1 g of Rocephin and Betadine was used to cleansed the rectum. The transducer was placed in the rectum, and examination of the prostate revealed no hypoechoic lesions. The total volume was 31 mL. We now proceeded to biopsy, dividing the prostate into 6 sections and obtaining 2 cores per sextant for a total of 12 cores. We then maintained pressure with the transducer for several minutes to induce hemostasis and no significant bleeding was noted. The patient tolerated the procedure well. Abrahan Zavaleta MD
== END 2018-07-29 12:45 | disposition home or self-care (01) ==
LOC: C.SDS 06:20
PROVIDERS: ATTEND Urology
DX: N40.0 Benign prostatic hyperplasia without lower urinary tract symptoms (principal)
CPT/HCPCS: 55700; 76872; 82948; 88305; 88342; J0696; J1580

== ENCOUNTER 2019-01-06 07:17 | Outpatient (CLI) | payer OTHER, MEDICARE | END 2019-01-06 07:18 | disposition home or self-care (01) | LOC: C.MRIC 07:18 ==

== ENCOUNTER 2019-01-07 07:50 | Outpatient (CLI) | payer OTHER, MEDICARE | END 2019-01-07 07:51 | disposition home or self-care (01) | LOC: C.MRIC 07:51 ==

== ENCOUNTER 2019-03-21 13:17 | Outpatient (CLI) | payer MEDICARE, BC | END 2019-03-21 13:18 | disposition home or self-care (01) | LOC: C.USIC 13:17 ==